=== PATIENT | male | born 1995 | race Caucasian/White ===

== ENCOUNTER 2017-02-08 18:29 | Emergency (ER) | payer OTHER ==
[2017-02-08 18:34] VITALS: RESP 18
--- NOTE | 2017-02-08 19:00 | EDPHY ---
H & P Stated Complaint: Shooting rifle yesterday without ear protection; decreased hearing in L ear Time Seen by Provider: 02/08/17 18:47 HPI/ROS: Chief complaint: Decreased hearing after shooting a rifle History of present illness: This is a 21-year-old male who presents to the emergency department for evaluation of decreased hearing after shooting a rifle. Patient states he shot a rifle yesterday without ear protection. Since then he has had decreased hearing. Left ear worse than right ear. Slight headache that has improved. Denies other associated signs or symptoms. No direct trauma. No systemic symptoms such as dizziness, lightheadedness, vertigo. - Personal History Current Tetanus Diphtheria and Acellular Pertussis (TDAP): Yes - Medical/Surgical History Other PMH: healthy. daily marijuana use - Social History Smoking Status: Never smoked - Physical Exam Exam: General Appearance: Alert, nontoxic. Eyes: Pupils equal and round no injection. ENT: Tympanic membranes, external auditory canals, external ears and surrounding soft tissue including over the mastoids are unremarkable. Nasopharynx is not injected. There is no rhinorrhea. Oropharynx is not injected. There is no edema. There is no exudate. There is no asymmetry. The uvula is midline. No elevation of the tongue. There is no hoarseness, no drooling, no trismus, no stridor. Respiratory: Chest is non tender, lungs are clear to auscultation. Cardiac: regular rate and rhythm Musculoskeletal: Neck is supple and non tender. Extremities have full range of motion and are non tender. Skin: No rashes or lesions. Neurological: Alert and oriented x4. Cranial nerves 2-12 grossly intact. Strength and sensation intact and symmetrical. Constitutional: Initial Vital Signs Temperature (C) 36.8 C 02/08/17 18:30 Heart Rate 96 02/08/17 18:30 Respiratory Rate 18 02/08/17 18:30 Blood Pressure 123/82 H 02/08/17 18:30 O2 Sat (%) 98 02/08/17 18:30 O2 Delivery Mode Room Air Allergies/Adverse Reactions: No Known Allergies Allergy (Unverified 02/08/17 18:34) Home Medications: Medication Instructions Recorded NK [No Known Home Meds] 02/08/17 Medical Decision Making ED Course/Re-evaluation: Patient seen under the supervision of my secondary supervising physician Dr. Danny Sheehan. Patient presents to the emergency department for decreased hearing after shooting a rifle. My evaluation is unremarkable. I have consulted with ENT, Dada Fitzpatrick. He is comfortable with patient being discharged home and following up in clinic next week for audiology testing. Home care is discussed with the patient. Return precautions are given. Patient voiced understanding and agreement with plan. Differential Diagnosis: Included but not limited to ruptured eardrum, ossicle dislocation unlikely central nervous system issue Departure - Departure Disposition: Home, Routine, Self-Care Clinical Impression: Barotrauma, otic Qualifiers: Encounter type: initial encounter Qualified Code(s): T70.0XXA - Otitic barotrauma, initial encounter Condition: Good Instructions: Hearing Loss (ED) Additional Instructions: Follow-up with ENT tomorrow for recheck If symptoms worsen or new symptoms return emergency room for recheck Referrals: NONE *PRIMARY CARE P,. [Primary Care Provider] - As per Instructions Ruiz Winston MD [Medical Doctor] - As per Instructions
[2017-02-08 19:18] VITALS: BP 124/78; PULSE 110; TEMP 98.6; O2SAT 97
== END 2017-02-08 19:19 | disposition home or self-care (01) ==
DX: T70.0XXA Otitic barotrauma, initial encounter (principal)